=== PATIENT | female | born 1975 | race Two or more races ===

== ENCOUNTER 2017-07-16 08:21 | Observation (INO) | payer OTHER ==
[2017-07-16] MEDS ORDERED: LR 1,000 ML IV ONE (09:34)
--- NOTE | 2017-07-16 10:08 | PDHPUP ---
History & Physical Update H&P update statement: This history and physical update is based on an assessment of the patient which was completed after admission or registration (within 24 hours), but prior to the surgery/procedure. H&P update: H&P reviewed & patient examined, no change in patient's condition since H&P completed
[2017-07-16] MEDS ORDERED: MIDAZOLAM 2 MG/2 ML VIAL IVP ONE (10:09)
--- NOTE | 2017-07-16 10:09 | PDANEPAE ---
ANE History of Present Illness here for lap removal splenic cyst ANE Past Medical History - Cardiovascular History Hx Hypertension: No Hx Arrhythmias: No Hx Chest Pain: No Hx Coronary Artery / Peripheral Vascular Disease: No Hx CHF / Valvular Disease: No Hx Palpitations: No - Pulmonary History Hx COPD: No Hx Asthma/Reactive Airway Disease: No Hx Recent Upper Respiratory Infection: No Hx Oxygen in Use at Home: No Hx Sleep Apnea: No Sleep Apnea Screening Result - Last Documented: Negative Pulmonary History Comment: FLU/URI 04/2017 GIVEN ANTIBIOTICS - Neurologic History Hx Cerebrovascular Accident: No Hx Seizures: No Hx Dementia: No - Endocrine History Hx Diabetes: No - Renal History Hx Renal Disorders: Yes Renal History Comment: FREQUENT UTI'S LAST 5 MONTHS. URINARY LEAKAGE - Liver History Hx Hepatic Disorders: Yes Hepatic History Comment: CYST ON SPLEEN - Neurological & Psychiatric Hx Hx Neurological and Psychiatric Disorders: No - Cancer History Hx Cancer: No - Congenital Disorder History Hx Congenital Disorders: No - GI History Hx Gastrointestinal Disorders: Yes Gastrointestinal History Comment: ABD BLOATING - Other Health History Other Health History: ANEMIA 3 YRS AGO - Chronic Pain History Chronic Pain: Yes (LT RIB CAGE AREA) - Surgical History Prior Surgeries: MERI 1999. SEPTOPLASTY 2012. UTERINE ABLATION. LT BUNIONECTOMY 03/2017. CYSTOCELE/RECTOCELE REPAIR ANE Review of Systems Review of systems is: negative Review of Systems: - Exercise capacity Exercise capacity: >=4 METS METS (RN): 4 METS ANE Patient History - Allergies Allergies/Adverse Reactions: Penicillins Allergy (Verified 07/08/17 14:19) Rash - Home Medications Home medications: home medication list seen and reviewed Home Medications: NK [No Known Home Meds] 07/08/17 [Last Taken Unknown] - NPO status NPO Status: no food or drink >8 hours NPO Since - Liquids (Date): 07/16/17 NPO Since - Liquids (Time): 07:00 NPO Since - Solids (Date): 07/15/17 NPO Since - Solids (Time): 19:30 - Anes Hx Anes Hx: no prior problems - Smoking Hx Smoking Status: Never smoked ANE Labs/Vital Signs - Vital Signs Vital Signs: reviewed preoperatively; see RN documention for details Blood Pressure: 128/78 Heart Rate: 68 Respiratory Rate: 14 O2 Sat (%): 96 Height: 160.02 cm Weight: 58.967 kg ANE Physical Exam - Airway Neck exam: FROM Mallampati Score: Class 1 Mouth exam: normal dental/mouth exam - Pulmonary Pulmonary: no respiratory distress - Cardiovascular Cardiovascular: regular rate and rhythym - ASA Status ASA Status: I ANE Anesthesia Plan Anesthesia Plan: general endotracheal anesthesia
[2017-07-16] MEDS ORDERED: PROMETHAZINE HCL 25 MG/ML INJ IVP PRN (10:10)
[2017-07-16] MEDS ORDERED: NALOXONE HCL 0.4 MG/ML INJ IVP PRN (10:10)
[2017-07-16] MEDS ORDERED: ONDANSETRON 4 MG/2 ML VIAL IVP PRN (10:10)
[2017-07-16] MEDS ORDERED: DEXAMETHASONE 4 MG/ML VIAL IVP PRN (10:10)
[2017-07-16] MEDS ORDERED: ALBUTEROL 3 ML DEYVIAL IH PRN (10:10)
[2017-07-16] MEDS ORDERED: BUPIVACAINE 0.25% 30 ML SDV ONE (10:13)
--- NOTE | 2017-07-16 10:15 | POSTOPPROG ---
Post Op Note Date of Operation: 07/16/17 Surgeon: Trell Molina Anesthesiologist: Blayne Langford Anesthesia: GET(General Endotracheal) Pre-op Diagnosis: Splenic Cyst Post-op Diagnosis: Same Procedure: Lap splenic cystectomy Findings: large simple cyst adhesed to diaphragm Inf/Abcess present in the surg proc area at time of surgery?: No EBL: Minimal Complications: no immediate Specimen(s): cyst
[2017-07-16] MEDS ORDERED: PROPOFOL 200 MG/20 ML VIAL ONE (10:17)
[2017-07-16] MEDS ORDERED: fentaNYL 100 MCG/2 ML INJ ONE ×3 (10:18→12:25)
[2017-07-16] MEDS ORDERED: SCOPOLAMINE HYDROBROMIDE 1 MG/3 DAYS PATCH TD ONE ×2 (10:23)
[2017-07-16] MEDS ORDERED: BUPIVACAINE/EPI 0.5% 30 ML SDV ONE (10:30)
[2017-07-16] MEDS ORDERED: PROPOFOL/EMULSION 500 MG/50 ML BOTTLE IV ONE (10:54)
[2017-07-16] MEDS ORDERED: KETOROLAC 30 MG/1 ML SDV ONE (11:04)
[2017-07-16] MEDS ORDERED: SUGAMMADEX SODIUM 200 MG/2 ML VIAL IVP ONE (11:25)
[2017-07-16] MEDS ORDERED: SURGIFLO MATRIX KIT WITH THROMBIN 8ml TP ONE (11:35)
[2017-07-16] MEDS ORDERED: HYDROCODONE/APAP 5/325 TAB PO PRN (12:14)
[2017-07-16] MEDS: fentaNYL 100 MCG/2 ML INJ IVP PRN ×2 (12:27→12:36)
[2017-07-16] MEDS ORDERED: HYDROmorphONE/DILAUDID 2 MG/ML INJ ONE (13:17)
[2017-07-16] MEDS: HYDROmorphONE/DILAUDID 2 MG/ML INJ IVP PRN ×4 (13:20→13:40)
--- NOTE | 2017-07-16 13:50 | GOP ---
[f rep st] OPERATIVE REPORT DATE OF OPERATION: 07/16/2017 SURGEON: Trell Molina MD ANESTHESIA: General. ANESTHESIOLOGIST: Blayne Langford MD PREOPERATIVE DIAGNOSIS: Symptomatic splenic cyst. POSTOPERATIVE DIAGNOSIS: Symptomatic splenic cyst. PROCEDURE PERFORMED: Laparoscopic splenic cystectomy. FINDINGS: INDICATIONS: A 42-year-old female with a large symptomatic superior pole splenic cyst suggestive of a simple non-infectious lesion. She is undergoing surgical excision at this time. Risks and benefit s were explained of bleeding, infection, cyst recurrence, indications for total splenectomy, risk of OPSI as well as pancreatic injury and others. All questions were answered. She desires to proceed. DESCRIPTION OF PROCEDURE: General anesthesia was induced. The patient was placed in right lateral d ecubitus position, being careful to pad all pressure points. Local anesthetic was infiltrated. A crawford praumbilical 10 mm cutdown was created. A trocar was placed under direct visualization. Two additio nal left subcostal ports were inserted. The splenic cyst was easily visualized arising from the supe rior pole of the spleen proper. This was adherent to the diaphragm. The omental adhesions were lyse d using the Harmonic scalpel along for the upper pole to be completely mobilized. No short gastric v essels were taken down to facilitate dissection. The diaphragmatic adhesions were all lysed again wi th the ultrasonic dissector. The cyst was completely aspirated. This was a simple serous appearing fluid. This was all sent for culture and cytology. The cyst was subsequently opened with the ultras onic dissector and, using this device, the spleen cyst was completely shelled out from the upper pole of the spleen in its entirety. No portion of the back wall was left behind. Satisfactory hemostasi s was assured throughout the dissection site using electrocautery. A miniscule portion of normal malina ining nonviable spleen was left anteriorly and not further excised. The remaining portions of the sp radha all appeared pink and viable and undisturbed. The cyst was brought through the umbilical port s ite using an EndoCatch pouch. Satisfactory hemostasis was assured throughout the left upper quadrant . Surgiflo was placed across the excision site. The trocars were removed under direct visualization . Prior to removing, exploration of the peritoneal surfaces, liver and omentum all showed no other o bvious abnormalities. The supraumbilical midline fascia was closed with a running Vicryl suture. Th e wounds were closed with Monocryl suture followed by Dermabond. The patient was taken to recovery u neventfully. /[id number]/MODL
[2017-07-16] MEDS ORDERED: ACETAMINOPHEN 325 MG TAB PO PRN (14:22)
[2017-07-16] MEDS ORDERED: LORazepam 1 MG TAB PO PRN (14:22)
--- NOTE | 2017-07-16 16:46 | POSTANESTH ---
Post Anesthetic Evaluation Cardiovascular Status: Normal, Stable Respiratory Status: Normal, Stable Level of Consciousness/Mental Status: Can Participate in Eval Pain Control: Adequate, Prn Tx Ordered Nausea/Vomiting Control: Adequate, Prn Tx Ordered Complications Possibly Related to Anesthesia: None Noted
[2017-07-16] MEDS: HYDROCODONE/APAP 5/325 TAB PO PRN (17:22)
[2017-07-16] MEDS: KETOROLAC 15 MG/1 ML SDV IVP SCH ×2 (17:25→23:48)
[2017-07-17 00:01] VITALS: RESP 18
[2017-07-17] MEDS: ONDANSETRON 4 MG/2 ML VIAL IVP PRN ×2 (00:16→09:05)
[2017-07-17] MEDS: KETOROLAC 15 MG/1 ML SDV IVP SCH (05:21)
--- NOTE | 2017-07-17 08:38 | SOAPPROG ---
SOAP Progress Note Assessment/Plan: Assessment/Plan: POD#1 s/p lap splenic cyst excision AFB neg Anxiety in PACU and overnight OOB to bathroom Expected shoulder pain (referred diaphragm irritation) Temp Pulse Resp BP Pulse Ox 36.7 C 63 18 101/73 93 07/17/17 03:48 07/17/17 03:48 07/17/17 03:48 07/17/17 03:48 07/17/17 03:48 AA&O Anicteric RRR Incisions c/d. appropriate incisional tenderness No edema Doing well d/c home f/u as scheduled in office pain Rx at home 07/17/17 08:35 Objective: Vital Signs Temp Pulse Resp BP Pulse Ox 36.7 C 63 18 101/73 93 07/17/17 03:48 07/17/17 03:48 07/17/17 03:48 07/17/17 03:48 07/17/17 03:48 Microbiology 07/16/17 11:19 Mycobacterial Smear (JACKI) - Final Other - Other 07/16/17 11:19 Gram Stain - Final Other - Other 07/16/17 07/17/17 07/18/17 05:59 05:59 05:59 Intake Total 2079 Output Total 10 Balance 2069 ICD10 Worksheet Patient Problems: Problems Problem Status Onset Cyst of spleen Acute
[2017-07-17] MEDS: HYDROCODONE/APAP 5/325 TAB PO PRN ×2 (09:04→11:22)
--- NOTE | 2017-07-17 10:05 | ASMTLACE ---
LACE Length of stay for Answers: Less than 1 day current admission Acuity / Level of Answers: No Care: Did the patient have an inpatient admission? # of Emergency department Answers: 0 visits in the last 6 months Date Signed: 07/17/2017 10:04 AM Electronically Signed By:FREDY Lucero
[2017-07-17] MEDS ORDERED: PATCH REMOVAL 1 EA PATCH TD SCH (10:23)
[2017-07-17 10:39] VITALS: BP 117/72; PULSE 68; TEMP 98.2; O2SAT 96
--- NOTE | 2017-07-17 14:13 | ASDISCHSUM ---
Discharge Information Plan Status:Home with No Needs Medically Cleared to Leave:07/17/2017 Discharge Date:07/17/2017 11:33 AM CM D/C Disposition:Home, Routine, Self-Care ADT D/C Disposition:Home, Routine, Self-Care Projected Discharge Date:07/17/2017 11:33 AM Transportation at D/C:Family Discharge Delay Reason: Follow-Up Date:07/17/2017 11:33 AM Discharge Slot: Final Diagnosis: Placement Information Patient Contact Information Contact Name:JAJA Relationship: Address:[address] [place] [address] Work Phone: City:[place] Phone: [facility]/Zip Code:[place] [address] Email: Financial Information Financial Class:HMO and PPO Plans Primary Plan Desc:[facility] Primary Plan Number:[id number] Secondary Plan Desc: Secondary Plan Number: Assessment Information Case Management Discharge Plan Note Case Management Discharge Discharge Order Complete? Answers: Yes Patient to Obtain Answers: via Family Medications Transportation Arranged Answers: Family/Friends Family Notified Answers: Yes Discharge Comments Notes: Pt is s/p a lap splenic cyst excision. She is discharging home today with her and no CM needs. Date Signed: 07/17/2017 02:12 PM Electronically Signed By:FREDY Lucero LACE LACE Length of stay for Answers: Less than 1 day current admission Acuity / Level of Answers: No Care: Did the patient have an inpatient admission? # of Emergency department Answers: 0 visits in the last 6 months Date Signed: 07/17/2017 10:04 AM Electronically Signed By:FREDY Lucero Intervention Information
== END 2017-07-17 11:33 | disposition home or self-care (01) ==
LOC: F3E 08:21 → F1N 15:14
PROVIDERS: ADMIT Surgery; ATTEND Surgery
DX: D73.4 Cyst of spleen (principal); Z88.0 Allergy status to penicillin
CPT/HCPCS: 38120; 38129; 71045; G0378; J1170; J1885; J2250; J2405; J2704; J3010